=== PATIENT | male | born 1995 | race Caucasian/White ===

== ENCOUNTER 2016-08-31 17:54 | Emergency (ER) | payer OTHER ==
[~2016-08-31] VITALS: Ht 190.5 cm; Wt 124.0 kg
[2016-08-31 18:18] VITALS: BP 141/90
== END 2016-08-31 21:40 | disposition left against medical advice (07) ==
LOC: ER 17:55
DX: R07.9 Chest pain, unspecified (principal); Z53.21 Procedure and treatment not carried out due to patient leaving prior to being seen by health care provider